=== PATIENT | female | born 1970 | race Caucasian/White ===

== ENCOUNTER → 2016-12-16 | Outpatient (CLI) | payer BC ==
[~2016-12-16] MED LIST: ALPR.5T PO; CLD600T PO; ESTR1TAB24 PO; HYDR-34 PO; IBUP-30 PO; IBUP100T46 PO; MELO-198 PO; MULT-974 PO; NAPR220C PO; OMEG10005 PO; OMEP20CA12 PO; PANT40TA PO; SCR1T PO; SULF1TAB7 PO; TAMO10TA PO; TRM50T PO; VNL37.5T PO
--- NOTE | 2016-12-16 12:07 | Diagnostic Imaging Report ---
PROCEDURE: MR imaging cervical spine without contrast. TECHNIQUE: Multiplanar, multisequence MR imaging of the cervical spine was performed without contrast. INDICATION: Neck pain. FINDINGS: There is straightening of the cervical lordosis, may relate to muscle spasm. The alignment of the posterior spinal line is satisfactory. The vertebral body heights are preserved. The bone marrow signal is within normal limits with no suspicious lesion seen. There is mild disc desiccation at all levels. No significant disc height loss is seen. The spinal cord has normal caliber, contour and signal. The foramen magnum and upper cervical canal are widely patent. C2/C3: No disc herniation. No spinal canal or foraminal stenosis. C3/C4: No disc herniation. No spinal canal or foraminal stenosis. C4/C5: There is no disc herniation. No spinal canal or foraminal stenosis. C5/C6: There is no disc herniation. No spinal canal or foraminal stenosis. C6/C7: There is a prominent spur disc complex eccentric to the left and mildly narrowing the left side aspect of the spinal canal with no significant spinal canal stenosis otherwise. No cord compression or cord signal abnormality. There is uncovertebral joint hypertrophy bilaterally resulting in mild to moderate foraminal stenosis on the left and no significant foraminal stenosis on the right. C7/T1: No disc herniation. No spinal canal or foraminal stenosis. IMPRESSION: Prominent left paracentral disc spur complex at C6/C7 level slightly narrowing the AP dimension of the left side of the spinal canal. No cord compression or cord signal abnormality. Dictated by: Dictated on workstation # [id number]
== END ==
LOC: RAD 09:04
DX: M46.02 Spinal enthesopathy, cervical region (principal)
CPT/HCPCS: 72141

== ENCOUNTER 2017-09-08 09:22 | Outpatient (RCR) | payer BC ==
[2017-08-30 13:50] VITALS: BP 122/77
[2017-08-30] MEDS: MEROPENEM 1 GM/NS 100 ML IVPB IV SCH ×4 (14:11→21:00)
[2017-08-30 14:45] VITALS: BP 122/77
[2017-08-30] MEDS: CATHETER FLUSH 10 ML SYR IV PRN (21:00)
[2017-08-30 21:43] VITALS: BP 113/73
[2017-08-31] MEDS: CATHETER FLUSH 10 ML SYR IV PRN ×2 (11:09→11:40)
[2017-08-31] MEDS: MEROPENEM 1 GM/NS 100 ML IVPB IV SCH ×4 (11:10→20:11)
[2017-08-31 11:40] VITALS: BP 133/100
[2017-08-31 20:11] VITALS: BP 117/82
[2017-09-01] MEDS: CATHETER FLUSH 10 ML SYR IV PRN (08:20)
[2017-09-01] MEDS: MEROPENEM 1 GM/NS 100 ML IVPB IV SCH ×4 (08:20→19:58)
[2017-09-01 08:50] VITALS: BP 128/78
[2017-09-01 19:58] VITALS: BP 125/78
[2017-09-02] MEDS: MEROPENEM 1 GM/NS 100 ML IVPB IV SCH ×4 (09:58→20:31)
[2017-09-02] MEDS: CATHETER FLUSH 10 ML SYR IV PRN ×2 (10:30→20:31)
[2017-09-02 11:10] VITALS: BP 127/70
[2017-09-02 21:10] VITALS: BP 140/78
[2017-09-03] MEDS: CATHETER FLUSH 10 ML SYR IV PRN ×2 (09:33→20:41)
[2017-09-03] MEDS: MEROPENEM 1 GM/NS 100 ML IVPB IV SCH ×4 (09:34→20:41)
[2017-09-03 10:06] VITALS: BP 141/75
[2017-09-03 21:15] VITALS: BP 129/87
[2017-09-04] MEDS: CATHETER FLUSH 10 ML SYR IV PRN ×3 (09:30→20:02)
[2017-09-04] MEDS: MEROPENEM 1 GM/NS 100 ML IVPB IV SCH ×4 (09:30→20:02)
[2017-09-04 10:00] VITALS: BP 123/94
[2017-09-04 20:05] VITALS: BP 137/81
[2017-09-04 21:46] VITALS: BP 137/81
[2017-09-05 08:55] VITALS: BP 145/91
[2017-09-05] MEDS: MEROPENEM 1 GM/NS 100 ML IVPB IV SCH ×4 (09:05→20:42)
[2017-09-05] MEDS: CATHETER FLUSH 10 ML SYR IV PRN ×2 (09:05→20:42)
[2017-09-05 21:15] VITALS: BP 137/81
== END 2017-11-28 | disposition home or self-care (01) ==
LOC: SDC 09:22
DX: N39.0 Urinary tract infection, site not specified (principal)
CPT/HCPCS: 76937; 96360; 96365

== ENCOUNTER → 2017-09-23 | Outpatient (CLI) | payer BC ==
--- NOTE | 2017-09-23 15:57 | Diagnostic Imaging Report ---
PROCEDURE: CT urinary tract, rule out kidney stone. TECHNIQUE: Multiple contiguous axial images were obtained through the abdomen and pelvis without the use of intravenous contrast. INDICATION: Hematuria, chronic urinary tract infections. COMPARISON: Exam compared to 01/28/2010. FINDINGS: Dilatation of the extrarenal right pelvis and mild right-sided upper pole caliectasis identical in appearance to the study of 2010. A new stone within a right lower pole calyx has developed measuring 2 mm in diameter. Very slight ectasia of the left-sided extrarenal pelvis also identical in appearance to the prior. The left kidney was without stone. Unopacified urinary bladder is unremarkable. Seen on axial image 132 of series 2, there is a tiny punctate 1 mm area of radiopacity within the lumen of the distal right ureter at the level of the UVJ or just proximal to that structure. This did not result in proximal ureteral dilatation just above that level. This is new from prior. Left ureter is unremarkable. No perinephric or periureteric edema. No urinoma or fluid collection. Liver, adrenals, pancreas, and gallbladder are negative. Splenic granulomata are benign. IMPRESSION: 1. There does appear to be a tiny distal right ureteral intraluminal stone of 1 mm near the UVJ. The mid ureter just above that level was nondilated. There is unchanged chronic dilatation of the right greater than left extrarenal pelves and unchanged chronic mild right upper pole calyceal dilatation. These findings are stable from 2010. No acute hydronephrosis. A nonobstructing intrarenal stone within a right lower pole calyx has developed from the prior. 2. Remaining structures are unremarkable. Dictated by: Dictated on workstation # [id number]
== END ==
LOC: RAD 12:16
PROVIDERS: ATTEND Obstetrics & Gynecology Female Pelvic Medicine and Reconstructive Surgery
DX: N39.0 Urinary tract infection, site not specified (principal); N20.2 Calculus of kidney with calculus of ureter
CPT/HCPCS: 74176

== ENCOUNTER → 2017-10-24 | Outpatient (CLI) | payer BC | LOC: LAB 13:20 | PROVIDERS: ATTEND Nurse Practitioner Family | DX: N20.1 Calculus of ureter (principal) | CPT/HCPCS: 87088 ==

== ENCOUNTER 2017-11-06 10:15 | Outpatient (RCR) | payer BC ==
[2017-10-28] MEDS: ERTAPENEM 1 GM/NS 100 ML IVPB IV SCH ×2 (15:30)
[2017-10-28 16:10] VITALS: BP 126/86
[2017-10-29] MEDS: CATHETER FLUSH 10 ML SYR IV PRN (09:42)
[2017-10-29] MEDS: ERTAPENEM 1 GM/NS 100 ML IVPB IV SCH ×2 (09:42)
[2017-10-29 09:52] VITALS: BP 112/86
[2017-10-29 10:19] VITALS: BP 112/86
[2017-10-30] MEDS: ERTAPENEM 1 GM/NS 100 ML IVPB IV SCH ×2 (09:38)
[2017-10-30 11:59] VITALS: BP 121/76
[2017-10-31] MEDS: CATHETER FLUSH 10 ML SYR IV PRN ×2 (09:10→09:55)
[2017-10-31] MEDS: ERTAPENEM 1 GM/NS 100 ML IVPB IV SCH ×2 (09:10)
[2017-10-31 10:00] VITALS: BP 132/88
[2017-11-01] MEDS: CATHETER FLUSH 10 ML SYR IV PRN (09:19)
[2017-11-01 09:20] VITALS: BP 89/58
[2017-11-01] MEDS: ERTAPENEM 1 GM/NS 100 ML IVPB IV SCH ×2 (09:20)
[2017-11-02] MEDS: CATHETER FLUSH 10 ML SYR IV PRN ×2 (09:25→10:00)
[2017-11-02] MEDS: ERTAPENEM 1 GM/NS 100 ML IVPB IV SCH ×2 (09:30)
[2017-11-02 10:04] VITALS: BP 118/79
[2017-11-03] MEDS: CATHETER FLUSH 10 ML SYR IV PRN ×2 (12:34→13:05)
[2017-11-03] MEDS: ERTAPENEM 1 GM/NS 100 ML IVPB IV SCH ×2 (12:35)
[2017-11-03 13:15] VITALS: BP 122/84
[2017-11-04] MEDS: CATHETER FLUSH 10 ML SYR IV PRN (14:44)
[2017-11-04 14:45] VITALS: BP 132/91
[2017-11-04] MEDS: ERTAPENEM 1 GM/NS 100 ML IVPB IV SCH ×2 (14:45)
[2017-11-05] MEDS: CATHETER FLUSH 10 ML SYR IV PRN ×2 (10:05→10:38)
[2017-11-05] MEDS: ERTAPENEM 1 GM/NS 100 ML IVPB IV SCH ×2 (10:05)
[2017-11-05 10:40] VITALS: BP 119/89
[~2017-11-06 10:15] MED LIST changes: +ERTAPENEM 1000 MG (INVanz) VIAL IM SCH; +ERTAPENEM 1000 MG (INVanz) VIAL ONE
[2017-11-06] MEDS: ERTAPENEM 1 GM/NS 100 ML IVPB IV SCH ×2 (10:36)
[2017-11-06] MEDS: CATHETER FLUSH 10 ML SYR IV PRN ×2 (10:36→11:03)
[2017-11-06 11:03] VITALS: BP 110/77
== END 2018-01-26 | disposition home or self-care (01) ==
LOC: SDC 10:15
PROVIDERS: ATTEND Nurse Practitioner Family
DX: N39.0 Urinary tract infection, site not specified (principal)
CPT/HCPCS: 96365; 99211

== ENCOUNTER → 2017-11-21 | Outpatient (CLI) | payer BC ==
[~2017-11-21] MED LIST changes: -ERTAPENEM 1000 MG (INVanz) VIAL IM SCH; -ERTAPENEM 1000 MG (INVanz) VIAL ONE
== END ==
LOC: LAB 13:01
PROVIDERS: ATTEND Specialist
DX: N39.0 Urinary tract infection, site not specified (principal)
CPT/HCPCS: 87088; 87186

== ENCOUNTER → 2018-06-08 | Outpatient (CLI) | payer BC ==
--- NOTE | 2018-06-08 08:49 | Diagnostic Imaging Report ---
PROCEDURE: CT abdomen and pelvis with and without contrast. TECHNIQUE: Precontrast acquisitions were acquired through the abdomen and pelvis. Multiple contiguous axial images were obtained through the abdomen and pelvis after the administration of intravenous contrast. INDICATION: Hematuria and urinary tract infections. Comparison is made with prior CT from 09/23/2017. Lung bases are clear apart from a calcified granuloma in the left lower lobe. The liver and gallbladder are unremarkable. The pancreas is unremarkable. There are numerous granulomas throughout the spleen. No adrenal mass is identified. Extrarenal pelvis involving the right kidney is again noted. Tiny nonobstructing calculus lower pole right kidney is again seen. No ureteral calculi are identified. The aorta is non-aneurysmal. The small and large bowel loops are normal caliber. No obstruction is seen. There is no ascites. The bladder is decompressed but otherwise unremarkable. No definite abdominal or pelvic lymphadenopathy is identified. Bony structures shows postop changes of posterior instrumented fusion involving the lower lumbar spine. IMPRESSION: 1. Tiny nonobstructing right renal calculus. No other significant abnormality is seen. No ureteral calculi or acute hydronephrosis is seen. ADDENDUM: UPDATED PROVIDER PABLITO ALEXANDER Dictated by: Dictated on workstation # [id number]
== END ==
LOC: RAD 08:11
PROVIDERS: ATTEND Physician Assistant
DX: N20.0 Calculus of kidney (principal); N39.0 Urinary tract infection, site not specified
CPT/HCPCS: 74178

== ENCOUNTER → 2019-09-19 | Outpatient (CLI) | payer BC ==
--- NOTE | 2019-09-19 09:43 | Diagnostic Imaging Report ---
PROCEDURE: MRI lumbar spine. TECHNIQUE: Multiplanar, multisequence MRI of the lumbar spine was performed without contrast. INDICATION: Chronic lower back pain. Previous lumbar spine surgery. History of breast cancer. COMPARISON: 06/16/2011 FINDINGS: Again identified are postsurgical changes of previous laminectomy and posterior fusion extending from L3 through S1. Evaluation integrity of the surgical hardware is suboptimal given MR modality and metallic susceptibility artifact, static alignment is maintained. Small focal fluid collection is again identified within the posterior soft tissues epicentered at the L4 and L5 levels. This is essentially stable compared to prior exam. Vertebral body heights are maintained. There is no acute fracture. Marrow signal is normal throughout. There is mild intervertebral disc height loss of the lower lumbar spine, greatest at L4-L5. Visualized portions of distal cord are unremarkable. Conus terminates at approximately the L1 level. Note is again made of apparent septation within the thecal sac versus chronic subdural hygroma at the level of superior endplate of L3 extending inferiorly to the intervertebral disc space of L3-L4. This however is stable in appearance when compared to 06/16/2011. No other abnormal intrathecal filling defects are seen. Pre and paravertebral soft tissue structures are unremarkable. Axial images demonstrate the following: T12-L1: There is slight broad-based posterior disc bulge which results in minimal effacement of the anterior thecal sac. There is otherwise no significant spinal canal or neuroforaminal stenosis. L1-L2: There is no large disc bulge or focal protrusion. There is no significant spinal canal or neuroforaminal stenosis. L2-L3: There is mild broad-based posterior disc bulge and bilateral ligamentum flavum laxity and facet arthropathy. As a result, there is mild narrowing of the spinal canal. Neural foramina are unremarkable. L3-L4: There is no large disc bulge or focal protrusion. There is no significant spinal canal or neuroforaminal stenosis. L4-L5: There is no large disc bulge or focal protrusion. No significant spinal canal or neuroforaminal stenosis is identified. L5-S1: No large disc bulge or focal protrusion is seen. There is no significant spinal canal or neuroforaminal stenosis. IMPRESSION: 1. Postsurgical changes of the lower lumbar spine as described above. Again, evaluation of integrity hardware is suboptimal, but static alignment is maintained. 2. Stable abnormal appearance to the thecal sac at about the L3 level suggestive of septation from potential prior arachnoiditis or small subdural hygroma. 3. Mild multilevel degenerative changes, but no significant spinal canal or neuroforaminal stenosis. 4. No acute fracture or dislocation. Dictated by: Dictated on workstation # [id number]
== END ==
LOC: RAD 08:34
DX: M47.817 Spondylosis without myelopathy or radiculopathy, lumbosacral region (principal); M46.07 Spinal enthesopathy, lumbosacral region
CPT/HCPCS: 72148

== ENCOUNTER 2021-05-13 09:15 | Outpatient (RCR) | payer BC | END 2021-05-19 | disposition home or self-care (01) | PROVIDERS: ATTEND Neurological Surgery | DX: M48.062 Spinal stenosis, lumbar region with neurogenic claudication (principal); Z98.1 Arthrodesis status; Z85.3 Personal history of malignant neoplasm of breast ==

== ENCOUNTER → 2021-08-06 | Outpatient (CLI) | payer BC ==
[~2021-08-06] VITALS: Ht 173 cm; Wt 63.6 kg
[~2021-08-06] MED LIST changes: +ACETAMINOPHEN 500 MG TAB (TYLENOL) PO PRN; +BAMLANIVIMAB 700 MG/ETESEVIMAB 1,400 MG IN NS IV ONE; +EPINEPHrine INJECTION 1 MG/ML AMP IM PRN; +ONDANSETRON 4 MG/2 ML (SDV) Z0FRAN IV PRN; +diphenhydrAMINE 50 MG/ML INJ (BENADRYL) IV PRN
[2021-08-06 12:05] VITALS: BP 151/85
[2021-08-06 12:14] VITALS: BP 121/61
== END ==
LOC: INFUSION 10:39
PROVIDERS: ATTEND Nurse Practitioner Family
DX: U07.1 COVID-19 (principal)

== ENCOUNTER 2021-08-13 15:25 | Outpatient (RCR) | payer BC ==
[~2021-08-13 15:25] MED LIST changes: -ACETAMINOPHEN 500 MG TAB (TYLENOL) PO PRN; -BAMLANIVIMAB 700 MG/ETESEVIMAB 1,400 MG IN NS IV ONE; -EPINEPHrine INJECTION 1 MG/ML AMP IM PRN; -ONDANSETRON 4 MG/2 ML (SDV) Z0FRAN IV PRN; -diphenhydrAMINE 50 MG/ML INJ (BENADRYL) IV PRN
== END 2021-08-14 | disposition home or self-care (01) ==
PROVIDERS: ATTEND Neurological Surgery
DX: M48.062 Spinal stenosis, lumbar region with neurogenic claudication (principal); Z98.1 Arthrodesis status

== ENCOUNTER → 2021-08-19 | Outpatient (CLI) | payer BC ==
--- NOTE | 2021-08-19 10:04 | Diagnostic Imaging Report ---
PROCEDURE: US venous upper extremity left. TECHNIQUE: Multiple realtime grayscale images were obtained of left upper extremity in various projections. Additional spectral analysis and color Doppler duplex images were also obtained. INDICATION: Left upper extremity swelling Grayscale and color Doppler evaluation of left upper extremity deep veins reveal no intraluminal filling defect. There is normal venous flow. There is normal compressibility and response to augmentation. Hypoechoic region in the left forearm measures 1.0 x 0.8 x 0.4 cm and may represent hematoma. IMPRESSION: No ultrasound evidence of left upper extremity deep venous thrombosis. Dictated by: Dictated on workstation # [id number]
== END ==
LOC: RAD 09:15
PROVIDERS: ATTEND Nurse Practitioner Family
DX: R22.32 Localized swelling, mass and lump, left upper limb (principal)

== ENCOUNTER 2021-09-10 15:29 | Outpatient (RCR) | payer BC | END 2021-09-14 | disposition home or self-care (01) | PROVIDERS: ATTEND Neurological Surgery | DX: M48.061 Spinal stenosis, lumbar region without neurogenic claudication (principal); M54.16 Radiculopathy, lumbar region; Z98.1 Arthrodesis status ==

== ENCOUNTER 2021-09-30 08:31 | Outpatient (RCR) | payer BC | END 2021-10-12 | disposition home or self-care (01) | PROVIDERS: ATTEND Neurological Surgery | DX: M48.061 Spinal stenosis, lumbar region without neurogenic claudication (principal); M54.16 Radiculopathy, lumbar region; Z98.1 Arthrodesis status ==

== ENCOUNTER → 2021-12-23 | Outpatient (CLI) | payer BC, OTHER | LOC: CARD 08:30 | PROVIDERS: ATTEND Internal Medicine Cardiovascular Disease | DX: I10 Essential (primary) hypertension (principal); I25.10 Atherosclerotic heart disease of native coronary artery without angina pectoris | CPT/HCPCS: 93306 ==

== ENCOUNTER 2022-01-01 06:35 | Outpatient (CLI) | payer BC ==
[~2022-01-01] VITALS: Ht 172.7 cm; Wt 70.3 kg
[2022-01-04] MEDS ORDERED: MELO10CA3 PO (15:29)
[2022-01-04] MEDS ORDERED: METF-397 PO (15:29)
[2022-01-04] MEDS ORDERED: PANT40TA52 PO (15:29)
== END 2022-01-04 16:06 | disposition home or self-care (01) ==
LOC: PREOP 06:35
PROVIDERS: ATTEND Internal Medicine
DX: Z01.818 Encounter for other preprocedural examination (principal)

== ENCOUNTER 2022-01-08 08:51 | Day surgery (SDC) | payer BC ==
--- NOTE | 2022-01-03 07:04 | HISTORY AND PHYSICAL ---
DATE OF SERVICE: COLONOSCOPY HISTORY AND PHYSICAL HISTORY OF PRESENT ILLNESS: The patient is a 51-year-old white female referred by Austin wu and Rika Silveira from urgent care for her first screening colonoscopy. She has a slightly higher than average risk as she was diagnosed with breast cancer in 2011 and underwent lumpectomy. It was at least ER positive. She was placed on tamoxifen and has had no evidence for recurrence since. She has longstanding constipation issues that she only requires as needed stool softeners for, but occasionally will note bright red blood per rectum, usually associated with constipation. She denies abdominal pain, change in weight or change in appetite. PAST MEDICAL HISTORY: Other than above is notable for either insulin resistance or diabetes. She has been placed on metformin about a year ago taking 1000 mg b.i.d. In 2013, the patient did undergo EGD per Dr. Sotelo did reveal reported grade II reflux and I believe the patient has been on proton pump inhibitor therapy. currently in the form of pantoprazole since. MEDICATIONS ON ADMISSION: Include venlafaxine for hot flashes since the initiating tamoxifen at 37.5 mg daily, meloxicam for joint aches and pains reportedly related to tamoxifen, pantoprazole 40 mg daily for reflux symptoms and alprazolam 1 mg at bedtime for sleep disturbance. She is also on vitamin D and calcium. PAST SURGICAL HISTORY: Other than lumpectomy, she has had lumbar fusion surgery. FAMILY HISTORY: Mother of complications of idiopathic pulmonary fibrosis the age of 59. Father of COVID at the age of 79. Brother is living at age 54 with history of coronary artery disease and diabetes. Father also had coronary artery disease. Her brother had a heart attack in his late 40s and as I recall followed by bypass surgery or at least multiple stents. REVIEW OF SYSTEMS: CONSTITUTIONAL: Denies night sweats, chills or fever. GASTROINTESTINAL: As noted in the HPI. CARDIOVASCULAR: Denies chest pain, orthopnea, PND or pedal edema. PULMONARY: Denies cough, wheezing or shortness of breath. PHYSICAL EXAMINATION: GENERAL: Reveals a white female appeared to be in no acute distress. VITAL SIGNS: Weight 155 pounds, blood pressure 134/90. HEENT: Unremarkable. Sclerae nonicteric. CHEST: Clear to auscultation. CARDIOVASCULAR: Reveals regular rate and rhythm without murmur, S3 or S4. ABDOMEN: Soft, supple without mass, organomegaly or tenderness. EXTREMITIES: Reveal no cyanosis, clubbing or edema. ASSESSMENT/PLAN: 1. The patient is being set up for her first screening colonoscopy. Prep instructions were reviewed, and her electronic medical record was reviewed. Questions were answered. 2. Type 2 diabetes mellitus. We will obtain previous blood tests. 3. History of breast cancer. No evidence for recurrence since her original diagnosis in 2011. The patient follows at for this. 4. Family history for early coronary artery disease. We repeat lipid panel and make further recommendations as she does not have a primary care provider. We will have her follow up with Sherri in 2 months. Job ID: [id number] DocumentID: [id number] Dictated Date: 12/31/2021 15:18:21 Cooky Machine Operator Date: 12/31/2021 16:21:44 Dictated By: EDILMA THOMAS MD
[~2022-01-08] VITALS: Ht 172.7 cm; Wt 70.3 kg
[~2022-01-08 08:51] MED LIST changes: +MELO10CA3 PO; +METF-397 PO; +PANT40TA52 PO
[2022-01-08] MEDS ORDERED: LACTATED RINGERS 1,000 ML IV STA (08:59)
[2022-01-08 09:00] VITALS: BP 131/85
[2022-01-08] MEDS ORDERED: MIDAZOLAM 2 MG/2 ML (VERSED) VIAL ONE (09:09)
[2022-01-08] MEDS ORDERED: PROPOFOL INJECTION 50 ML IV ONE (09:09)
[2022-01-08 09:50] VITALS: BP 105/68
--- NOTE | 2022-01-08 09:51 | Pre-Op Note & Conscious Sedat ---
Pre-Operative Progress Note H&P Reviewed The H&P was reviewed, patient examined and no changes noted. Date H&P Reviewed: January 08, 2022 Time H&P Reviewed: 09:05 Conscious Sedation Pre-Proced ASA Score 2 For ASA 3 and 4: Consider anesthesia and medical clearance. Also, for patients with a history of failed moderate sedation consider anesthesia. Airway Lungs Heart ASA score ASA 1: a normal healthy patient ASA 2: a patient with a mild systemic disease (mid diabetes, controlled hypertension, obesity ASA 3: a patient with a severe systemic disease that limits activity (angina, COPD, prior Myocardial infarction) ASA 4: a patient with an incapacitating disease that is a constant threat to life (CHF, renal failure) ASA 5: a moribund patient not expected to survive 24 hrs. (ruptured aneurysm) ASA 6: a declared brain- patient whose organs are being harvested. For emergent operations, add the letter E after the classification Mallampati Classification Grade 1 Sedation Plan Analgesia, Amnesia, Plan communicated to team members, Discussed options with patient/fam, Discussed risks with patient/fam The patient is an appropriate candidate to undergo the planned procedure, sedation, and anesthesia. The patient immediately re-assessed prior to indication. EDILMA THOMAS MD January 08, 2022 09:51
[2022-01-08 10:00] VITALS: BP 107/68
[2022-01-08] MEDS ORDERED: LACTATED RINGERS 1,000 ML IV ONE (10:08)
[2022-01-08 10:10] VITALS: BP 107/68
--- NOTE | 2022-01-08 10:11 | Anesthesia-General Post-Op ---
MAC Patient Condition Mental Status/LOC: Same as Preop Cardiovascular: Satisfactory Nausea/Vomiting: Absent Respiratory: Satisfactory Pain: Controlled Complications: Absent Post Op Complications Complications None Follow Up Care/Instructions Patient Instructions None needed. Anesthesiology Discharge Order Discharge Order Patient is doing well, no complaints, stable vital signs, no apparent adverse anesthesia problems. No complications reported per nursing. JUNITO MARIA DO January 08, 2022 10:11
--- NOTE | 2022-01-08 15:09 | OPERATIVE REPORT ---
DATE OF SERVICE: COLONOSCOPY SUMMARY INDICATION FOR THE PROCEDURE: Screening colonoscopy. The patient was placed in the left lateral decubitus position. Prior to undergoing colonoscopy, digital rectal evaluation was performed. Anal sphincter tone was normal and the perianal reflexes intact. No abnormalities were noted on digital inspection of anal canal or distal rectal vault. The colonoscope was then inserted into the rectum and under direct visualization advanced to cecum. Cecum was identified by identification of ileocecal valve and cecal strap. Photographic documentation was obtained. Quality of prep was good. Careful inspection was made as the colonoscope was withdrawn. FINDINGS: There was no evidence for internal or external hemorrhoids and the rectum was unremarkable. Present in the distal sigmoid colon was a diminutive 2 mm sessile polyp was biopsied and cauterized with no subsequent blood loss. The sigmoid colon, descending colon, splenic flexure, transverse colon, hepatic flexure, ascending colon and cecum were unremarkable. ASSESSMENT: One diminutive polyp was removed from the distal sigmoid colon with otherwise normal colonoscopy to the cecum under good prep conditions. As long as there continues to be no family history for colon cancer, advocate consideration for repeat screening colonoscopy in 10 years. Job ID: [id number] DocumentID: [id number] Dictated Date: 01/08/2022 09:49:22 Dental Chairside Assistant Date: 01/08/2022 15:08:46 Dictated By: EDILMA THOMAS MD
== END 2022-01-08 10:16 | disposition home or self-care (01) ==
LOC: ENDO 08:51
PROVIDERS: ATTEND Internal Medicine
DX: Z12.11 Encounter for screening for malignant neoplasm of colon (principal); D12.5 Benign neoplasm of sigmoid colon; E11.9 Type 2 diabetes mellitus without complications; Z79.84 Long term (current) use of oral hypoglycemic drugs; Z85.3 Personal history of malignant neoplasm of breast; Z82.49 Family history of ischemic heart disease and other diseases of the circulatory system
CPT/HCPCS: 88305

== ENCOUNTER → 2022-01-27 | Outpatient (CLI) | payer BC ==
[2022-01-27 14:26] VITALS: BP 136/90
--- NOTE | 2022-02-01 11:51 | Cardiology Stress Test Report ---
Stress Test Report Date of Procedure/Referring: Date of Procedure: Jan 27, 2022 PCP Tray Tadoe MD Admitting Physician Admitting Physician: Attending Physician: Nuzhat Wilburn MD Indications: HTN Baseline Heart Rate: 77 Baseline Blood Pressure: Blood Pressure Systolic: 136 Blood Pressure Diastolic: 90 Baseline EKG: Baseline EKG: NSR Summary/Conclusion: Summary: In summary, the patient started exercising with a baseline heart rate, blood pressure and EKG mentioned above Patient was able to exercise for a total of 6 minutes on Salvador protocol, METs 7.3 Maximum heart rate 149 Maximum blood pressure 189/102 Stress EKG, Minimal nondiagnostic changes Recovery EKG , Return to baseline Conclusion: 1. Good exercise tolerance for a total of 6 minutes on Salvador protocol, 7.3 METs, achieving 88 percent of maximum expected heart rate 2. Minimal nondiagnostic EKG changes with exercise returned to baseline during recovery 3. No arrhythmia was noted NUZHAT WILBURN MD Feb 01, 2022 11:51
== END ==
LOC: CARD 14:00
PROVIDERS: ATTEND Internal Medicine Cardiovascular Disease
DX: I10 Essential (primary) hypertension (principal); I25.10 Atherosclerotic heart disease of native coronary artery without angina pectoris
CPT/HCPCS: 93017

== ENCOUNTER → 2022-10-14 | Outpatient (CLI) | payer BC ==
--- NOTE | 2022-10-14 15:50 | Diagnostic Imaging Report ---
INDICATION: Palpable lump left breast. Sonographic interrogation of all 4 quadrants of the left breast as well as the retroareolar region was performed. The area of palpable abnormality corresponds to the upper left breast approximately 10-12 cm from the nipple. There is a small echogenic focus measuring 5 mm x 3 mm x 4 mm suggestive of a small lipoma. No other masses are seen. No fluid collections are identified. The remainder of the left breast is unremarkable. IMPRESSION: BI-RADS Category 2. Findings suggestive of a small lipoma at the area of palpable abnormality in the upper left breast. No other significant abnormality is detected. ACR BI-RADS Category 2: Benign findings. Result letter will be mailed to the patient. Note: At least 10% of breast cancer is not imaged by mammography. Dictated by: Dictated on workstation # [id number]
== END ==
LOC: RAD 14:01
PROVIDERS: ATTEND Nurse Practitioner Family
DX: C50.911 Malignant neoplasm of unspecified site of right female breast (principal); R22.2 Localized swelling, mass and lump, trunk
CPT/HCPCS: 76641

== ENCOUNTER 2023-01-06 10:30 | Outpatient (RCR) | payer BC | END 2023-01-12 | disposition home or self-care (01) | DX: M54.50 Low back pain, unspecified (principal) ==

== ENCOUNTER 2023-01-14 16:50 | Emergency (ER) | payer BC ==
[~2023-01-14] VITALS: Ht 172.7 cm; Wt 58.9 kg
[2023-01-14 17:15] VITALS: BP 146/92
[2023-01-14] MEDS ORDERED: FLEET ENEMA ADULT 1 EA BTL PR ONE (17:30)
[2023-01-14] MEDS ORDERED: MILK OF MAGNESIA 400 MG/5 ML 30 ML UDC PO ONE (17:30)
[2023-01-14] MEDS ORDERED: BISACODYL 10 MG SUPP (DULCOLAX) PR ONE (17:30)
--- NOTE | 2023-01-14 17:36 | ED Abdominal Pain ---
General Chief Complaint: Abdominal/GI Problems Stated Complaint: CONSTIPATED/UNABLE TO URINATE Nursing Triage Note: PT AMBULATORY TO ROOM. STATES SHE HAS NOT HAD A BOWEL MOVEMENT FOR 7 DAYS AND NOW HAS BEEN UNABLE TO URINATE FOR 3 HOURS. PT IS A&OX3, SPEECH NORMAL Source of Information: Patient Exam Limitations: No Limitations History of Present Illness Date Seen by Provider: Jan 14, 2023 Time Seen by Provider: 17:35 Initial Comments Patient is a 52-year-old female who presents to ED with constipation. Last bowel movement 7 days ago. She states she recently returned from a camp. She started develop pressure in her lower abdomen and rectum. She states she has not urinated for the past 3 hours. She reports using MiraLAX. She attempted a Fleet enema earlier but was unsuccessful. She performed a do suppository Dulcolax without any bowel movements. She denies any vomiting. Generalized abdominal discomfort. She denies fever, chills, chest pain, cough or shortness of breath. History of constipation but denies ever having constipation for this long Allergies and Home Medications Allergies Coded Allergies: penicillin G (Verified Allergy, Unknown, 06/03/08) Patient Home Medication List Home Medication List Reviewed: Yes Alprazolam (Xanax) 0.5 Mg Tablet, 0.5 MG PO HS PRN, (Reported) Entered as Reported by: FANNIE DUKES on 07/10/12 1210 Calcium Carbonate/Vitamin D3 (Ponce-600 W/Vit D Tablet) 1 Tab Tablet, 1 TAB PO DAILY, (Reported) Entered as Reported by: FANNIE DUKES on 07/10/12 1210 Meloxicam, Submicronized (Meloxicam) 10 Mg Capsule, 10 MG PO DAILY, (Reported) Entered as Reported by: THERESE DUNCAN on 01/04/22 1529 Metformin HCl (Metformin HCl) 500 Mg Tablet, 500 MG PO BID, (Reported) Entered as Reported by: THERESE DUNCAN on 01/04/22 152 Multivitamin (Multi-Vitamin Daily) 1 Each Tablet, 1 TAB PO DAILY, (Reported) Entered as Reported by: NITESH TRIANA on 04/12/16 1424 Pantoprazole Sodium (Pantoprazole Sodium) 40 Mg Tablet.dr, 40 MG PO DAILY, (Reported) Entered as Reported by: THERESE DUNCAN on 01/04/22 1529 Tamoxifen Citrate (Tamoxifen Citrate) 10 Mg Tablet, 10 MG PO DAILY, (Reported) Entered as Reported by: JOE RANDALL on 11/04/131937 Venlafaxine Hcl (Effexor Tab) 37.5 Mg Tab, 37.5 MG PO DAILY, (Reported) Entered as Reported by: JOE RANDALL on 11/04/131937 Review of Systems Review of Systems Constitutional: No chills, No diaphoresis, No fever, No malaise, No weakness EENTM: No Double Vision, No Eye Pain Respiratory: Denies Cough, Denies Orthopnea Cardiovascular: Denies Chest Pain Gastrointestinal: Abdominal Pain, Constipated; Denies Nausea, Denies Vomiting Genitourinary: Denies Burning Musculoskeletal: No back pain, No joint pain Skin: No change in color All Other Systems Reviewed Negative Unless Noted: Yes Past Cvflkfp-Oepzzy-Zgraom Hx Immunizations Up To Date Tetanus Booster (TDap): Unknown First/Initial COVID19 Vaccinat: YES Second COVID19 Vaccination Rodolfo: YES Third COVID19 Vaccination Date: YES Seasonal Allergies Seasonal Allergies: Yes Past Medical History Surgeries: Yes (back surg, r lumpectomy breast, r knee meniscus/D&C) Appendectomy, Breast, Section, Hysterectomy, Orthopedic Respiratory: No Cardiac: No Neurological: No Reproductive Disorders: No (ECTOPIC ) COMPUTER SYSTEMS DESIGN ANALYST History: Hysterectomy Genitourinary: No Gastrointestinal: Yes Gastroesophageal Reflux, Chronic Constipation Musculoskeletal: Yes Arthritis Endocrine: Yes Diabetes, Non-Insulin dep HEENT: No Cancer: Yes Breast Did You Recieve Any Treatments: Yes What Type of Treatment Did You: Radiation, Surgical Intervention Psychosocial: No Integumentary: No Blood Disorders: No Physical Exam Vital Signs Vital Signs - First Documented 01/14/23 17:15 Pulse 86 Resp 20 B/P (MAP) 146/92 (110) Pulse Ox 100 Capillary Refill : Height/Weight/BMI Height: 0'0.00" Weight: 0lbs. 0.0oz. 0.932535sd; 19.00 BMI Method:Stated General Appearance: WD/WN, no apparent distress HEENT: PERRL/EOMI, normal ENT inspection, TMs normal, pharynx normal Neck: non-tender, full range of motion, supple, normal inspection Respiratory: chest non-tender, lungs clear, normal breath sounds, no respiratory distress, no accessory muscle use Cardiovascular: regular rate, rhythm, no edema, no gallop, no JVD Gastrointestinal: normal bowel sounds, non tender, soft, no organomegaly Extremities: normal range of motion, non-tender, normal inspection, no pedal edema Back: normal inspection, no CVA tenderness, no vertebral tenderness Neurologic/Psychiatric: ball worker II-XII nml as tested, no motor/sensory deficits, alert, normal mood/affect, oriented x 3 Skin: normal color, warm/dry Progress/Results/Core Measures Results/Orders My Orders Orders - SISI MAYA Abdomen, Flat & Upright/Decub (01/14/23 17:19) Bisacodyl Suppository (Dulcolax Supposit (01/14/23 17:30) Na Phos/Na Biphos Enema (Fleet Enema Kota (01/14/23 17:30) Magnesium Hydroxide Oral Susp (Mom Oral (01/14/23 17:30) Magnesium Citrate Oral Soln (Citrate Of (01/14/23 17:29) Bladder Scan (01/14/23 17:45) Magnesium Citrate Oral Soln (Citrate Of (01/14/23 17:57) Vital Signs/I&O 01/14/23 17:15 Pulse 86 Resp 20 B/P (MAP) 146/92 (110) Pulse Ox 100 Blood Pressure Mean: 110 Departure Communication (PCP) Reviewed previous ER visits, H&P, lab testing. History of constipation. Last bowel movement 7 days ago. Lower abdominal pressure, rectal pressure. Has not urinated over the past 3 to 4 hours. Initial bladder scan showed over 500 mls. Abdominal x-ray was ordered to rule out obstruction which was negative but did note large amount of colonic stool. She denies of any vomiting. She did two Dulcolax suppository attempted Fleet enema and MiraLAX today and was unsuccessful at home. History of daily MiraLAX use. She refused a digital rectal exam. She did agree to magnesium citrate. Before giving the magnesium citrate patient had a large bowel movement that relieved her pressure. Postvoid bladder scan showed 35 mL. Patient request to be discharged. Recommend continue with MiraLAX. Continue with magnesium citrate. Fleet enemas as needed. High-fiber diet. Drink plenty of fluids. Return precaution were discussed. Impression Primary Impression: Constipation Disposition: 01 HOME, SELF-CARE Condition: Stable Departure-Patient Inst. Decision time for Depature: 18:19 Referrals: RESHMA SLATER APRN (PCP/Family) Primary Care Physician Patient Instructions: Constipation, Adult (DC) SISI MAYA Jan 14, 2023 17:36
[2023-01-14] MEDS ORDERED: MAGNESIUM CITRATE 300 ML BTL ONE (17:57)
--- NOTE | 2023-01-14 18:02 | Diagnostic Imaging Report ---
EXAMINATION: Abdominal radiographs, acute series. DATE: January 14, 2023. CLINICAL INDICATION: 52-year-old female, difficulty urinating. Abdominal pain. COMPARISON: CT abdomen and pelvis June 08, 2018. COMMENTS: Heart size and mediastinal contours are unremarkable. There is no identified pneumothorax. There is no large pleural effusion. There is no identified focal airspace consolidation. There are multiple surgical clips overlying the right chest. There is no identified free intraperitoneal air. There is no identified pneumatosis or portal venous gas. There is moderate to large volume stool in the colon. There are no abnormally distended gas-filled segments of bowel. There is lumbosacral spinal hardware noted. IMPRESSION: 1. No identified acute abdominal radiographic abnormality. 2. Moderate to large volume colonic stool. Dictated by: Dictated on workstation # [id number]
[2023-01-14] MEDS: MAGNESIUM CITRATE 300 ML BTL ONE ×2 (18:07→18:24)
== END 2023-01-14 18:21 | disposition home or self-care (01) ==
LOC: EDUNIT# 16:50 → ER 16:52
DX: K59.00 Constipation, unspecified (principal)
CPT/HCPCS: 74019

== ENCOUNTER 2023-02-09 14:12 | Outpatient (RCR) | payer BC | END 2023-02-11 | disposition home or self-care (01) | DX: M54.16 Radiculopathy, lumbar region (principal); Z98.1 Arthrodesis status ==

== ENCOUNTER 2023-03-10 08:33 | Outpatient (RCR) | payer BC | END 2023-03-14 | disposition home or self-care (01) | DX: M54.16 Radiculopathy, lumbar region (principal); Z98.1 Arthrodesis status ==

== ENCOUNTER 2023-03-22 13:01 | Outpatient (RCR) | payer BC | END 2023-04-14 | disposition home or self-care (01) | DX: M54.16 Radiculopathy, lumbar region (principal); Z98.1 Arthrodesis status ==